=== PATIENT | female | born 1990 | race Caucasian/White ===

== ENCOUNTER 2018-02-10 05:10 | Inpatient (IN) | payer BC ==
[2018-02-10] MEDS ORDERED: Sodium Chloride 0.9% 2.5 ML Syringe FLUSH PRN (05:29)
[2018-02-10] MEDS ORDERED: Water For Irrigation,Sterile 1,000 ML Container IRR PRN (05:29)
[2018-02-10] MEDS ORDERED: Terbutaline 1 MG/ML SDV SUBCUT PRN (05:29)
[2018-02-10] MEDS ORDERED: Sodium Chloride 0.9% 10 ML Syringe FLUSH PRN (05:29)
[2018-02-10] MEDS ORDERED: Butorphanol 1 MG/ML SDV IVPUSH PRN (05:29)
[2018-02-10] MEDS ORDERED: Methylergonovine 0.2 MG/1 ML Amp IM PRN (05:29)
[2018-02-10] MEDS ORDERED: Lidocaine 1% 50 ML MDV INJECT PRN (05:29)
[2018-02-10] MEDS ORDERED: Misoprostol 200 MCG Tab PO PRN (05:29)
[2018-02-10] MEDS ORDERED: Carboprost Tromethamine 250 MCG/1 ML Amp IM PRN (05:29)
[2018-02-10] MEDS ORDERED: Tranexamic Acid 1,000 MG in Sodium Chloride 0.9% 100 ML IV PRN (05:29)
[2018-02-10] MEDS ORDERED: Nalbuphine 10 MG/1 ML Vial IVPUSH PRN (05:29)
[2018-02-10] MEDS ORDERED: Oxytocin/0.9 % Sodium Chloride 30 UNIT/500 ML BAG IV SCH ×2 (05:30)
[2018-02-10] MEDS: Lactated Ringers 1,000 ML IV SCH ×3 (06:13→10:42)
[2018-02-10] MEDS ORDERED: Bupivacaine 0.25% 10 ML SDV ONE (09:55)
--- NOTE | 2018-02-10 10:32 | PCM.PREANE ---
Preanesthetic Assessment - Anesthesia/Transfusion/Family Hx Anesthesia History: Prior Anesthesia Without Reaction Family History of Anesthesia Reaction: No - Review of Systems General: No Symptoms Pulmonary: No Symptoms Cardiovascular: No Symptoms Gastrointestinal: No Symptoms Other: Reports: None - Physical Assessment NPO Status Date: 02/09/18 Height: 1.63 m Weight: 102.512 kg ASA Class: 2 Mental Status: Alert & Oriented x3 Airway Class: Mallampati = 1 Dentition: Reports: Normal Dentition ROM/Head Extension: Full Lungs: Clear to Auscultation, Normal Respiratory Effort Cardiovascular: Regular Rate, Regular Rhythm - Lab Values: Laboratory Last Values WBC 12.45 K/uL (4.0-11.0) H 02/10/18 05:45 RBC 4.41 M/uL (4.30-5.90) 02/10/18 05:45 Hgb 12.8 g/dL (12.0-16.0) 02/10/18 05:45 Hct 37.0 % (36.0-46.0) 02/10/18 05:45 MCV 83.9 fL (80.0-98.0) 02/10/18 05:45 MCH 29.0 pg (27.0-32.0) 02/10/18 05:45 MCHC 34.6 g/dL (31.0-37.0) 02/10/18 05:45 RDW Std Deviation 47.6 fl (28.0-62.0) 02/10/18 05:45 RDW Coeff of Mehran 16 % (11.0-15.0) H 02/10/18 05:45 Plt Count 194 K/uL (150-400) 02/10/18 05:45 MPV 9.00 fL (7.40-12.00) 02/10/18 05:45 Nucleated RBC % 0.0 /100WBC 02/10/18 05:45 Nucleated RBCs # 0 K/uL 02/10/18 05:45 Membrane Rupture NEGATIVE 02/10/18 07:00 Blood Type O POSITIVE 02/10/18 05:45 Antibody Screen NEGATIVE 02/10/18 05:45 - Allergies Allergies/Adverse Reactions: Allergies Allergy/AdvReac Type Severity Reaction Status Date / Time No Known Allergies Allergy Verified 02/10/18 05:28 - Anesthesia Plan Pre-Op Medication Ordered: None - Acknowledgements Anesthesia Type Planned: Epidural Pt an Appropriate Candidate for the Planned Anesthesia: Yes Alternatives and Risks of Anesthesia Discussed w Pt/Guardian: Yes Pt/Guardian Understands and Agrees with Anesthesia Plan: Yes Additional Comments: active labor , just progressed from 4 to 6. Plts [id number] nkda. 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: Other Musculoskeletal History: knee pain - Past Surgical History Other Musculoskeletal Surgeries/Procedures:: 10-12 surgeries b/l feet and ankles - SUBSTANCE USE Smoking Status *Q: Former Smoker Tobacco Use Within Last Twelve Months: Cigarettes Second Hand Smoke Exposure: Yes Recreational Drug Use History: No - HOME MEDS Home Medications: Home Meds Citalopram [Celexa] 20 mg PO DAILY 02/27/15 [History] Etonogestrel [Nexplanon] 68 mg SQ ASDIRECTED 02/27/15 [History] Meloxicam 15 mg PO DAILY 02/27/15 [History] - CURRENT (IN HOUSE) MEDS Current Meds: Current Medications Butorphanol Tartrate (Stadol) 1 mg IVPUSH Q1H PRN PRN Reason: Pain Carboprost Tromethamine (Hemabate Ds) 250 mcg IM ASDIRECTED PRN PRN Reason: Post Hemorrhage Lactated Ringer's (Ringers, Lactated) 1,000 mls @ 150 mls/hr IV ASDIRECTED RYAN Last Admin: 02/10/18 09:48 Dose: 999 mls/hr Oxytocin/Sodium Chloride (Oxytocin 30 Unit/500 Ml-Ns) 30 unit in 500 mls @ 999 mls/hr IV TITRATE RYAN Oxytocin/Sodium Chloride (Oxytocin 30 Unit/500 Ml-Ns) 30 unit in 500 mls @ 2 mls/hr IV TITRATE RYAN; Protocol Last Titration: 02/10/18 09:34 Dose: 10 munits/min, 10 mls/hr Tranexamic Acid 1,000 mg/ (Sodium Chloride) 110 mls @ 660 mls/hr IV ONETIME PRN PRN Reason: Bleeding Lidocaine HCl (Xylocaine 1%) 50 ml INJECT .ONCE PRN PRN Reason: Laceration repair Methylergonovine Maleate (Methergine) 0.2 mg IM ASDIRECTED PRN PRN Reason: Post Hemorrhage Misoprostol (Cytotec) 200 mcg PO .ONCE PRN PRN Reason: Post Hemorrhage Nalbuphine HCl (Nubain) 10 mg IVPUSH Q1H PRN PRN Reason: Pain (severe 7-10) Sodium Chloride (Saline Flush) 10 ml FLUSH ASDIRECTED PRN PRN Reason: Keep Vein Open Sodium Chloride (Saline Flush) 2.5 ml FLUSH ASDIRECTED PRN PRN Reason: Keep Vein Open Sterile Water (Sterile Water For Irrigation) 1,000 ml IRR ASDIRECTED PRN PRN Reason: delivery Terbutaline Sulfate (Brethine) 0.25 mg SUBCUT ASDIRECTED PRN PRN Reason: Tacysystole Discontinued Medications Bupivacaine HCl (Sensorcaine-Mpf 0.25%) Confirm Administered Dose 10 ml .ROUTE .STK-MED ONE Stop: 02/10/18 09:56 Fentanyl/Bupivacaine HCl (Kqjndywl-Wkyra-Or 2 Mcg/Ml-0.125%) Confirm Administered Dose 100 mls @ as directed EP .STK-MED ONE Stop: 02/10/18 09:55
--- NOTE | 2018-02-10 11:27 | PCM.DEL ---
L & D Note - General Info Date of Service: 02/10/18 - Delivery Note Labor: Augmented by Oxytocin Delivery Outcome: Livebirth Delivery Method: Spontaneous Vaginal Delivery-Single Delivery Mode: Spontaneous Presentation: Left Occiput Anterior (VINI) Nuchal Cord: None Prep: Other Anesthesia Type: Epidural Episiotomy Type: None Laceration: 1st Degree Suture type: Vicryl Suture size: 3-0 Placenta: Intact, Spontaneous Cord: 3 Vessels Estimated Blood Loss: 100 Resuscitation Needed: No : [place] Used Score 1 min: 8 Score 5 min: 9 Second Stage Interventions: Reports: Encouragement Given, Pushing Effectively, Pushing, Feet in Foot Rests Induction Criteria - Mercado Score Mercado Score Dilation: 1-2 cm Mercado Score Effacement: 60-70% Mercado Score Infant's Station: -3 Mercado Score Consistency: Medium Mercado Score Cervix Position: Posterior Mercado Score Total: 4 Mercado Score Presenting Part: Reports: Cephalic - Induction Gestational Age >/= 39 wks: Yes Estimated Pelvis: Reports: Adequate Reassuring Monitoring Strip: Yes Absence of Tachy Systole: Yes - General Info Date of Service: 02/10/18 - Patient Data Weight - Most Recent: 226 lb Lab Results Last 24 Hours: Laboratory Results - last 24 hr 02/10/18 02/10/18 02/10/18 Range/Units 05:45 05:45 07:00 WBC 12.45 H (4.0-11.0) K/uL RBC 4.41 (4.30-5.90) M/uL Hgb 12.8 (12.0-16.0) g/dL Hct 37.0 (36.0-46.0) % MCV 83.9 (80.0-98.0) fL MCH 29.0 (27.0-32.0) pg MCHC 34.6 (31.0-37.0) g/dL RDW Std Deviation 47.6 (28.0-62.0) fl RDW Coeff of Mehran 16 H (11.0-15.0) % Plt Count 194 (150-400) K/uL MPV 9.00 (7.40-12.00) fL Nucleated RBC % 0.0 /100WBC Nucleated RBCs # 0 K/uL Membrane Rupture NEGATIVE Blood Type O POSITIVE Antibody Screen NEGATIVE Med Orders - Current: Current Medications Butorphanol Tartrate (Stadol) 1 mg IVPUSH Q1H PRN PRN Reason: Pain Carboprost Tromethamine (Hemabate Ds) 250 mcg IM ASDIRECTED PRN PRN Reason: Post Hemorrhage Lactated Ringer's (Ringers, Lactated) 1,000 mls @ 150 mls/hr IV ASDIRECTED RYAN Last Admin: 02/10/18 10:42 Dose: 125 mls/hr Oxytocin/Sodium Chloride (Oxytocin 30 Unit/500 Ml-Ns) 30 unit in 500 mls @ 999 mls/hr IV TITRATE RYAN Oxytocin/Sodium Chloride (Oxytocin 30 Unit/500 Ml-Ns) 30 unit in 500 mls @ 2 mls/hr IV TITRATE RYAN; Protocol Last Titration: 02/10/18 09:34 Dose: 10 munits/min, 10 mls/hr Tranexamic Acid 1,000 mg/ (Sodium Chloride) 110 mls @ 660 mls/hr IV ONETIME PRN PRN Reason: Bleeding Lidocaine HCl (Xylocaine 1%) 50 ml INJECT .ONCE PRN PRN Reason: Laceration repair Methylergonovine Maleate (Methergine) 0.2 mg IM ASDIRECTED PRN PRN Reason: Post Hemorrhage Misoprostol (Cytotec) 200 mcg PO .ONCE PRN PRN Reason: Post Hemorrhage Nalbuphine HCl (Nubain) 10 mg IVPUSH Q1H PRN PRN Reason: Pain (severe 7-10) Sodium Chloride (Saline Flush) 10 ml FLUSH ASDIRECTED PRN PRN Reason: Keep Vein Open Sodium Chloride (Saline Flush) 2.5 ml FLUSH ASDIRECTED PRN PRN Reason: Keep Vein Open Sterile Water (Sterile Water For Irrigation) 1,000 ml IRR ASDIRECTED PRN PRN Reason: delivery Terbutaline Sulfate (Brethine) 0.25 mg SUBCUT ASDIRECTED PRN PRN Reason: Tacysystole Discontinued Medications Bupivacaine HCl (Sensorcaine-Mpf 0.25%) Confirm Administered Dose 10 ml .ROUTE .STK-MED ONE Stop: 02/10/18 09:56 Fentanyl/Bupivacaine HCl (Jmndcpmm-Wfdwa-Ns 2 Mcg/Ml-0.125%) Confirm Administered Dose 100 mls @ as directed EP .STK-MED ONE Stop: 02/10/18 09:55 - Problem List & Annotations (1) Vaginal delivery SNOMED Code(s): 010218731 Code(s): O80 - ENCOUNTER FOR FULL-TERM UNCOMPLICATED DELIVERY Status: Acute Current Visit: Yes - Problem List Review Problem List Initiated/Reviewed/Updated: Yes - My Orders Last 24 Hours: My Active Orders 02/10/18 05:29 Bedrest Bathroom Privileges [RC] ASDIRECTED Butorphanol [Stadol] 1 mg IVPUSH Q1H PRN Carboprost Tromethamine [Hemabate DS] 250 mcg IM ASDIRECTED PRN Lidocaine 1% [Xylocaine 1%] 50 ml INJECT .ONCE PRN Methylergonovine [Methergine] 0.2 mg IM ASDIRECTED PRN Nalbuphine [Nubain] 10 mg IVPUSH Q1H PRN Sodium Chloride 0.9% [Saline Flush] 10 ml FLUSH ASDIRECTED PRN Sodium Chloride 0.9% [Saline Flush] 2.5 ml FLUSH ASDIRECTED PRN Terbutaline [Brethine] 0.25 mg SUBCUT ASDIRECTED PRN Tranexamic Acid [Cyklokapron] 1,000 mg Sodium Chloride 0.9% [Normal Saline] 100 ml IV ONETIME Water For Irrigation,Sterile [Sterile Water for Irrigation] 1,000 ml IRR ASDIRECTED PRN miSOPROStol [Cytotec] 200 mcg PO .ONCE PRN Resuscitation Status Routine 02/10/18 05:30 Patient Status [ADT] Routine Communication Order [RC] ASDIRECTED Communication Order [RC] ASDIRECTED Heart Tones [RC] CONTINUOUS Non Stress Test [RC] PER UNIT ROUTINE Notify Provider [RC] PRN Notify Provider [RC] PRN Notify Provider [RC] STAT Oxygen Therapy [RC] ASDIRECTED Vaginal Exam [RC] PRN Vital Signs [RC] PER UNIT ROUTINE Lactated Ringers [Ringers, Lactated] 1,000 ml IV ASDIRECTED Oxytocin/0.9 % Sodium Chloride [Oxytocin 30 Unit/500 ML-NS] 30 unit in 500 ml IV TITRATE Oxytocin/0.9 % Sodium Chloride [Oxytocin 30 Unit/500 ML-NS] 30 unit in 500 ml IV TITRATE Scalp Electrode [WOMSER] Per Unit Routine Peripheral IV Insertion Adult [OM.PC] Routine 02/10/18 Breakfast Clear Liquid Diet [DIET]
[2018-02-10] MEDS ORDERED: Ibuprofen 800 MG Tab PO PRN (11:28)
[2018-02-10] MEDS ORDERED: oxyCODONE 5 MG Tab PO PRN (11:28)
[2018-02-10] MEDS ORDERED: Bisacodyl 10 MG Supp RECTAL PRN (11:28)
[2018-02-10] MEDS ORDERED: Ibuprofen 400 MG Tab PO PRN (11:28)
[2018-02-10] MEDS ORDERED: Benzocaine/Menthol 20%-0.5% Spray 78 GM Cannister TOP PRN (11:28)
[2018-02-10] MEDS ORDERED: Acetaminophen 500 MG Tab PO PRN ×2 (11:28)
[2018-02-10] MEDS ORDERED: Lanolin 100% Cream 7 GM Tube TOP PRN (11:28)
[2018-02-10] MEDS ORDERED: Witch Hazel Medicated Pads 40/Jar TOP PRN (11:28)
[2018-02-10] MEDS ORDERED: Docusate Sodium 100 MG Cap PO PRN (11:28)
--- NOTE | 2018-02-10 12:24 | OR ---
SURGEON: Louisa Schmid MD DATE OF PROCEDURE: 02/10/2018 PREOPERATIVE DIAGNOSES: 1. Term intrauterine at 39 weeks and 2 days. 2. Elective induction of labor. POSTOPERATIVE DIAGNOSES: 1. Term intrauterine at 39 weeks and 2 days. 2. Elective induction of labor. 3. Delivered. PROCEDURES: Spontaneous vaginal delivery and repair of perineal laceration. ANESTHESIA: Epidural. ESTIMATED BLOOD LOSS: 100 mL. COMPLICATIONS: None. DISPOSITION: Mother and baby stable in Labor and Delivery room, [facility]. FINDINGS: Female infant, weight 3310 g, score 8 and 9 at 1 and 5 minutes respectively. Grossly normal placenta with 3-vessel cord. First degree laceration. BRIEF HISTORY: Ting is a 27-year-old G3, P2-0-0-1, who was admitted for induction of labor early hours of this morning at 39 weeks and 2 days gestation for social reasons. Her care was uncomplicated. On admission, she was 2 to 3 cm dilated. Oxytocin was commenced for induction of labor. At about 9 a.m. this morning, she was 3 to 4 cm dilated, 70% effaced, station -3. and artificial rupture of membranes was performed with clear fluid. She received epidural for pain management. She progressed rather quickly and became fully dilated within 2 hours and commenced active pushing. DESCRIPTION OF PROCEDURE: Set up in the modified dorsal lithotomy position, she had a spontaneous vaginal delivery of a live female in left occipital anterior position, no nuchal cord, clear amniotic fluid at delivery. The baby was vigorous and cried spontaneously at . The baby was delivered onto the maternal abdomen with the nursery nurse in attendance, stimulating and drying the baby. With delivery of the , oxytocin infusion was converted to titration for active management of third stage of labor. Delayed cord clamping was observed and the cord was subsequently cut by the father of the baby. Cord blood and gas samples were obtained. Examination of the perineum revealed a small, first- degree laceration at about 4 o'clock position. It kept bleeding despite digital pressure, so hemostatic stitch using 3-0 Vicryl suture was placed and that controlled the bleeding. Uterus was well contracted on manual massage. The patient tolerated the procedure well. Sponge, instrument, and needle counts were normal at the end of the delivery. ADUMVIV / MODL /[id number] MTDD
[2018-02-11 07:45] VITALS: BP 131/63
--- NOTE | 2018-02-11 07:54 | PCM48HPAN ---
Post Anesthesia Note - EVALUATION WITHIN 48HRS OF ANESTHETIC Vital Signs in Normal Range: Yes Patient Participated in Evaluation: Yes Respiratory Function Stable: Yes Airway Patent: Yes Cardiovascular Function Stable: Yes Hydration Status Stable: Yes Pain Control Satisfactory: Yes Nausea and Vomiting Control Satisfactory: Yes Mental Status Recovered: Yes Resp Rate: 16 - COMMENTS/OBSERVATIONS Free Text/Narrative:: full sensation in legs bilaterally
--- NOTE | 2018-02-11 08:07 | PCM.PNPP ---
- General Info Date of Service: 02/11/18 Functional Status: Reports: Pain Controlled, Tolerating Diet, Ambulating, Urinating - Review of Systems General: Denies: Fever, Weakness, Malaise, Chills HEENT: Denies: Headaches Pulmonary: Denies: Shortness of Breath, Pleuritic Chest Pain Cardiovascular: Denies: Chest Pain, Palpitations, Dyspnea on Exertion Gastrointestinal: Denies: Abdominal Pain Genitourinary: Denies: Dysuria, Incontinence Psychiatric: Denies: Depression, Mood Lability, Anxiety - General Info Date of Service: 02/11/18 - Patient Data Vital Signs - Most Recent: Last Vital Signs Temp 36.8 C 02/11/18 07:00 Pulse 58 L 02/11/18 07:00 Resp 16 02/11/18 07:54 BP 131/63 02/11/18 07:00 Pulse Ox 98 02/11/18 07:00 Weight - Most Recent: 226 lb Lab Results - Last 24 Hours: Laboratory Results - last 24 hr 02/10/18 02/11/18 Range/Units 11:01 05:30 Hgb 11.9 L (12.0-16.0) g/dL Hct 35.3 L (36.0-46.0) % Cord ABG pH 7.249 (7.18-7.38) Cord ABG Base Excess -7 (-10--2) Cord VBG pH 7.414 (7.25-7.45) Cord VBG Base Excess -5 (-10--2) Med Orders - Current: Current Medications Acetaminophen (Tylenol Extra Strength) 500 mg PO Q4H PRN PRN Reason: Pain Acetaminophen (Tylenol Extra Strength) 1,000 mg PO Q4H PRN PRN Reason: Pain Benzocaine/Menthol (Dermoplast Pain Relief 20%-0.5% [place]) 78 gm TOP ASDIRECTED PRN PRN Reason: Perineal Comfort Measure Bisacodyl (Dulcolax) 10 mg RECTAL .ONCE PRN PRN Reason: Constipation Docusate Sodium (Colace) 100 mg PO BID PRN PRN Reason: Constipation Emollient Ointment (Lansinoh Hpa) 0 gm TOP ASDIRECTED PRN PRN Reason: Sore Nipples Ibuprofen (Motrin) 400 mg PO Q4H PRN PRN Reason: Pain Ibuprofen (Motrin) 800 mg PO Q6H PRN PRN Reason: Pain Last Admin: 02/10/18 19:23 Dose: 800 mg Oxycodone HCl (Oxycodone) 5 mg PO Q2H PRN PRN Reason: Pain Witch Sophy (Tucks) 1 pad TOP ASDIRECTED PRN PRN Reason: comfort care Discontinued Medications Bupivacaine HCl (Sensorcaine-Mpf 0.25%) Confirm Administered Dose 10 ml .ROUTE .STK-MED ONE Stop: 02/10/18 09:56 Butorphanol Tartrate (Stadol) 1 mg IVPUSH Q1H PRN PRN Reason: Pain Carboprost Tromethamine (Hemabate Ds) 250 mcg IM ASDIRECTED PRN PRN Reason: Post Hemorrhage Lactated Ringer's (Ringers, Lactated) 1,000 mls @ 150 mls/hr IV ASDIRECTED RYAN Last Admin: 02/10/18 10:42 Dose: 125 mls/hr Oxytocin/Sodium Chloride (Oxytocin 30 Unit/500 Ml-Ns) 30 unit in 500 mls @ 999 mls/hr IV TITRATE RYAN Oxytocin/Sodium Chloride (Oxytocin 30 Unit/500 Ml-Ns) 30 unit in 500 mls @ 2 mls/hr IV TITRATE RYAN; Protocol Last Titration: 02/10/18 09:34 Dose: 10 munits/min, 10 mls/hr Tranexamic Acid 1,000 mg/ (Sodium Chloride) 110 mls @ 660 mls/hr IV ONETIME PRN PRN Reason: Bleeding Fentanyl/Bupivacaine HCl (Fuvjthyz-Hcksy-Pv 2 Mcg/Ml-0.125%) Confirm Administered Dose 100 mls @ as directed EP .STK-MED ONE Stop: 02/10/18 09:55 Lidocaine HCl (Xylocaine 1%) 50 ml INJECT .ONCE PRN PRN Reason: Laceration repair Methylergonovine Maleate (Methergine) 0.2 mg IM ASDIRECTED PRN PRN Reason: Post Hemorrhage Misoprostol (Cytotec) 200 mcg PO .ONCE PRN PRN Reason: Post Hemorrhage Nalbuphine HCl (Nubain) 10 mg IVPUSH Q1H PRN PRN Reason: Pain (severe 7-10) Sodium Chloride (Saline Flush) 10 ml FLUSH ASDIRECTED PRN PRN Reason: Keep Vein Open Sodium Chloride (Saline Flush) 2.5 ml FLUSH ASDIRECTED PRN PRN Reason: Keep Vein Open Sterile Water (Sterile Water For Irrigation) 1,000 ml IRR ASDIRECTED PRN PRN Reason: delivery Terbutaline Sulfate (Brethine) 0.25 mg SUBCUT ASDIRECTED PRN PRN Reason: Tacysystole - Infant Interaction Disposition, : [place] in Room with Family Interaction: Holding Infant Feeding: Bottle Fed Support Person: , Mother - Recovery Exam Fundal Tone: Firm Fundal Level: 1 Fingerbreadths Below Umbilicus Fundal Placement: Midline Lochia Amount: Scant Lochia Color: Rubra/Red Perineum Description: Intact, Minimal Bruising/Swelling Episiotomy/Laceration: Approximated Bladder Status: Voiding - Exam General: Alert, Oriented HEENT: Pupils Equal Lungs: Clear to Auscultation, Normal Respiratory Effort Cardiovascular: Regular Rate, Regular Rhythm GI/Abdominal Exam: Normal Bowel Sounds, Non-Tender Extremities: Non-Tender, No Pedal Edema Skin: Warm - Problem List & Annotations (1) Vaginal delivery SNOMED Code(s): 308956953 Code(s): O80 - ENCOUNTER FOR FULL-TERM UNCOMPLICATED DELIVERY Status: Acute Current Visit: Yes - Problem List Review Problem List Initiated/Reviewed/Updated: Yes - My Orders Last 24 Hours: My Active Orders 02/10/18 11:28 Patient Status [ADT] Routine May Shower [RC] ASDIRECTED Up ad [place] [RC] ASDIRECTED Vital Signs [RC] PER UNIT ROUTINE Acetaminophen [Tylenol Extra Strength] 1,000 mg PO Q4H PRN Acetaminophen [Tylenol Extra Strength] 500 mg PO Q4H PRN Benzocaine/Menthol [Dermoplast Pain Relief 20%-0.5% [place]] 78 gm TOP ASDIRECTED PRN Bisacodyl [Dulcolax] 10 mg RECTAL .ONCE PRN Docusate Sodium [Colace] 100 mg PO BID PRN Ibuprofen [Motrin] 400 mg PO Q4H PRN Ibuprofen [Motrin] 800 mg PO Q6H PRN Lanolin [Lansinoh HPA] See Dose Instructions TOP ASDIRECTED PRN Witch Sophy [Tucks] 1 pad TOP ASDIRECTED PRN oxyCODONE 5 mg PO Q2H PRN Assess Lochia [WOMSER] Per Unit Routine Assess Uterine Involution [WOMSER] Per Unit Routine Breast Pump [WOMSER] Per Unit Routine Peripheral IV Discontinue [OM.PC] Routine Resuscitation Status Routine 02/10/18 11:29 Perineal Care [OM.PC] Per Unit Routine 02/10/18 Lunch Regular Diet [DIET] - Assessment Assessment:: PPD#1, s/p , doing well, stable and afebrile Clinically stable for discharge today - Plan Plan:: Discharge instructions reviewed Nothing in the vagina for 6 weeks Continue PNV. Bleeding and infection precautions reviewed S/S od blues vs depression reviewed, call MD if any concernc Follow up in [facility] in 6 weeks
== END 2018-02-11 13:45 | disposition home or self-care (01) | DRG 560 ==
LOC: MW.OBCHECK 05:10 → MW.OB 05:12 → MW.OBCHECK 05:30 → MW.OB 05:30 → OBSVTOIN 11:01 → MW.OB 15:12
PROVIDERS: ADMIT Obstetrics & Gynecology; ATTEND Obstetrics & Gynecology
PROC: 10E0XZZ Delivery of Products of Conception, External Approach (ICD-10-PCS; principal; 2018-02-10)
PROC: 3E033VJ Introduction of Other Hormone into Peripheral Vein, Percutaneous Approach (ICD-10-PCS; 2018-02-10)
PROC: 10907ZC Drainage of Amniotic Fluid, Therapeutic from Products of Conception, Via Natural or Artificial Opening (ICD-10-PCS; 2018-02-10)
PROC: 0HQ9XZZ Repair Perineum Skin, External Approach (ICD-10-PCS; 2018-02-10)
DX: O70.0 First degree perineal laceration during delivery (principal); Z3A.39 39 weeks gestation of pregnancy; Z37.0 Single live birth
CPT/HCPCS: 36415; 59025; 59409; 82803; 84112; 85014; 85018; 85027; 86850; 86900; 86901; A9270-GY; J2590; J3490; J7120